=== PATIENT | female | born 1965 | race Caucasian/White ===

== ENCOUNTER 2023-06-01 13:24 | Outpatient (CLI) | payer BC, SELFPAY ==
--- NOTE | 2023-06-01 13:40 | MM_ITS ---
Patient: JAMIE HERNANDEZ Facility:?[facility] Patient ID:?[id number] Site Patient ID:?[id number]. Site :?[id number] Study:?XRay-Breast Bilateral 3D screening mammogram w/cad-06/01/2023 2:41:42 PM Ordering Physician:SAMUEL Final Report: BILATERAL SCREENING MAMMOGRAM WITH COMPUTER-AIDED DETECTION AND TOMOSYNTHESIS TECHNIQUE: CC and MLO views were obtained. These mammographic images have been obtained using full-field digital technique. These mammographic images were interpreted with the benefit of computer-aided detection. Breast Tomosynthesis was used in this interpretation. COMPARISON FILM: 05/26/21, 05/10/20 DIAGNOSTIC, 05/04/20, 11/19/18. FINDINGS: There are scattered areas of fibroglandular density IMPRESSION: There is no radiographic evidence for malignancy. ASSESSMENT: BI-RADS Category 2: Benign RECOMMENDATION: Routine screening mammogram in 1 year. A lay language report of this examination will be provided to the patient. Thomas Crandall M.D. Diagnostic Radiologist [email or web address] THOMAS/key / be/Dictated by: Thomas Crandall MD @ 06/05/2023 11:45:00 AM Signed by:?Thomas Crandall MD @06/05/2023 7:15:49 PM (Electronic Signature)
== END 2023-06-01 13:25 | disposition home or self-care (01) ==
LOC: MAMMO 13:25
PROVIDERS: PCP Family Medicine; Visit Provider Family Medicine
DX: Z12.31 Encounter for screening mammogram for malignant neoplasm of breast (principal)
CPT/HCPCS: 77063; 77067

== ENCOUNTER 2023-06-19 07:30 | Outpatient (CLI) | payer BC, SELFPAY | END 2023-06-19 07:31 | disposition home or self-care (01) | LOC: NFLDREF 06-20 10:17 | PROVIDERS: PCP Family Medicine; Referring Provider Family Medicine; Visit Provider Family Medicine | DX: Z00.00 Encounter for general adult medical examination without abnormal findings (principal); E78.5 Hyperlipidemia, unspecified; Z13.9 Encounter for screening, unspecified | CPT/HCPCS: 80053; 80061 ==

== ENCOUNTER 2024-08-14 08:02 | Outpatient (CLI) | payer BC, SELFPAY | END 2024-08-14 08:03 | disposition home or self-care (01) | LOC: NFLDREF 08-17 20:12 | PROVIDERS: PCP Family Medicine; Referring Provider Family Medicine; Visit Provider Family Medicine | DX: E78.5 Hyperlipidemia, unspecified (principal); R73.9 Hyperglycemia, unspecified | CPT/HCPCS: 80061; 82947 ==

== ENCOUNTER 2024-12-19 07:25 | Outpatient (CLI) | payer BC, SELFPAY | END 2024-12-19 07:26 | disposition home or self-care (01) | LOC: NFLDREF 12-22 07:32 | PROVIDERS: PCP Family Medicine; Referring Provider Family Medicine; Visit Provider Family Medicine | DX: E78.5 Hyperlipidemia, unspecified (principal); Z13.6 Encounter for screening for cardiovascular disorders | CPT/HCPCS: 80061 ==

== ENCOUNTER 2025-01-14 10:06 | Outpatient (CLI) | payer BC, SELFPAY ==
--- NOTE | 2025-01-14 10:15 | CRLHL7_ITS ---
For Patients: As a result of the Century Cures Act, medical imaging exams and procedure reports are released immediately into your electronic medical record. You may view this report before your referring provider. If you have questions, please contact your health care provider. INDICATION: BILATERAL SCREENING MAMMOGRAM, ASYMPTOMATIC 59 Y/O FEMALE COMPARISON: 06/01/2023, 05/26/2021, 05/10/2020 TECHNIQUE: Digital mammogram in CC and MLO projections including computer-aided detection (CAD) and tomosynthesis. BREAST COMPOSITION: There are scattered areas of fibroglandular density. FINDINGS: No suspicious findings. ASSESSMENT: BI-RADS 2 Benign RECOMMENDATION: Annual screening mammogram. A lay language report of this examination will be provided to the patient. Dictated by: Thomas Crandall MD @ 01/14/2025 12:26:36 (Electronically Signed)
== END 2025-01-14 10:07 | disposition home or self-care (01) ==
LOC: MAMMO 10:07
PROVIDERS: PCP Family Medicine; Visit Provider Family Medicine
DX: Z12.31 Encounter for screening mammogram for malignant neoplasm of breast (principal)
CPT/HCPCS: 77063; 77067